=== PATIENT | female | born 1985 | race Caucasian/White ===

== ENCOUNTER 2017-05-17 10:48 | Observation (INO) ==
[2017-05-17 11:27] VITALS: BMI 52.6
[2017-05-17] MEDS ORDERED: SALINE FLUSH 10ml SYRINGE ONE (11:53)
[2017-05-17] MEDS ORDERED: IOHEXOL 350mg/ml 75ml INJECTION ONE (11:53)
[2017-05-17] MEDS ORDERED: NS 100 ML ONE (11:53)
[2017-05-17] MEDS: CALCIUM CARBONATE Chewable 500mg TABLET PO PRN ×2 (11:58→11:59)
--- NOTE | 2017-05-17 12:56 | CT Scan Report ---
Indication: Chest pain/PENNY, hx of PE PROCEDURE: CT angio pulm emboli: Encounter: Initial Comparison: Two chest, 11/29/2016 Technique: Axial, coronal, and sagittal images of the chest were acquired utilizing 75 cc of Omnipaque 350. Additionally, coronal and sagittal MIPS images were acquired. Radiation dose reduction techniques were utilized. Informed consent was signed by the patient as she is at 26 weeks gestation. Findings: The study is suboptimal with there opacification of the central pulmonary arteries including the interlobar pulmonary arteries with basal segmental and subsegmental artery opacification which is relatively; however, within limits the study, definite pulmonary embolism is not identified. Lung window review demonstrates no active pulmonary parenchymal process, nodule, or mass. There is no mediastinal or hilar adenopathy. The heart and pericardium appear normal. Normal thymic tissue is seen. Few images through the upper abdomen demonstrates no significant abnormality. Visualized osseous elements are intact. Impression: 1. Suboptimal study. Large pulmonary embolism is not seen. Mid to distal segmental and subsegmental pulmonary emboli are not excluded. 2. No active parenchymal process. .
[2017-05-17 14:00] VITALS: BP 130/67; PULSE 84; RESP 20; TEMP 98; O2SAT 100
--- NOTE | 2017-05-17 17:26 | Labor and Delivery Triage Note ---
L&D Triage/Final Diagnosis - Visit Information Date of evaluation: 05/17/17 Reason for evaluation OB Triage: other Comments/Additional reasons for admission: Chest pain with personal history of DVT/PE Expected Date of Delivery: 08/28/17 : 2 Para: 1 - Evaluation Laboratory results: Laboratory Results - last 24 hr 05/17/17 11:29 BUN 8.0 Creatinine 0.6 L GFR Calculation 117 Vital signs: Last Vital Signs Temp 98.0 F 05/17/17 13:45 Pulse 84 05/17/17 13:45 Resp 20 05/17/17 13:45 BP 130/67 05/17/17 13:45 Pulse Ox 100 05/17/17 13:45 Comments: CTA negative for PE. - Final Diagnosis (1) History of pulmonary embolism Status: Acute Problem details: New onset chest pain last 2 days. Negative CTA. Dismissal to home. (2) Previous delivery affecting , antepartum Status: Acute
== END 2017-05-17 14:14 | disposition home or self-care (01) ==
LOC: MC
PROVIDERS: ADMIT Obstetrics & Gynecology; ATTEND Obstetrics & Gynecology

== ENCOUNTER 2017-08-11 09:15 | Inpatient (IN) ==
[2017-08-11] MEDS ORDERED: FAMOTIDINE PB 20 MG/50 ML BAG IV ONE (09:24)
[2017-08-11] MEDS ORDERED: CITRIC ACID/SODIUM CITRATE 30ml PO ONE (09:24)
[2017-08-11] MEDS ORDERED: CEFAZOLIN PREMIX (MC ONLY) 2 GM/50 ML BAG IV ONE (09:27)
[2017-08-11] MEDS ORDERED: NOZIN NASAL SWAB NAS ONE ×2 (09:27)
[2017-08-11] MEDS ORDERED: CEFAZOLIN 1 G INJECTION IVP ONE (09:27)
[2017-08-11] MEDS ORDERED: TRANEXAMIC ACID 1,000 MG in NS 100 ML IV ONE (09:31)
[2017-08-11] MEDS ORDERED: LR 1,000 ML IV SCH (10:00)
--- OUTSIDE RECORDS SUMMARY | 2017-08-11 10:13 | External Medical Summary | Continuity of Care Document ---
:1985 Author Organization [facility] Address [address] [place], [place] [id number] Phone Care Team Providers Name Role Phone Jose Srivastava MD Unavailable Unavailable Allergies, Adverse Reactions, Alerts Substance Reaction Severity Status No Known Drug Allergies Unknown Active Medications Medication Instructions Dosage Effective Dates Status Comments (start - stop) Keflex 500 mg capsule take 1 capsule by oral 500 MG - Active route every 6 hours Rhophylac 1,500 unit - Active (300 mcg)/2 mL injection syringe promethazine 25 mg take 1 tablet by oral 25 MG - Active tablet route every day at bedtime ondansetron HCl 4 mg take 1 tablet by ORAL 4 MG - Active tablet route every 6 hours as needed for nausea heparin (porcine) inject 5000 units - Active 5,000 unit/mL subcutaneous every 12 injection syringe hours 28 mg-800 mcg - Active tablet Problems Condition Effective Dates (start - stop) Clinical Status Supervision of other high risk - pregnancies, third trimester Known Or Suspected HOME HEALTH CLINICAL LIAISON - Malformation, Hinson Or Unspecified Gestation Polyhydramnios, third trimester, not - applicable or unsp Personal history of pulmonary embolism - Previous Low Transverse - Obesity complicating , first - trimester 12 weeks gestation of - Personal history of pulmonary embolism - Supervision of other high risk - pregnancies, second trimester 15 weeks gestation of - Supervision of other high risk - pregnancies, third trimester Maternal care for excess growth, - third trimester, unsp Polyhydramnios, third trimester, not - applicable or unsp Unspecified abnormal findings in urine - Supervision of other high risk - pregnancies, third trimester Unsp infct of urinary tract in - , third trimester 30 weeks gestation of - Morbid (severe) obesity due to excess - calories Supervision of other high risk - pregnancies, first trimester Threatened - Encntr screen for infections w sexl - mode of transmiss Encounter for screening for oth - infec/parastc diseases Encounter for screening of - mother Personal history of pulmonary embolism - Morbid (severe) obesity due to excess - calories Supervision of other high risk - pregnancies, second trimester 14 weeks gestation of - Personal history of pulmonary embolism - Morbid (severe) obesity due to excess - calories Supervision of other high risk - pregnancies, second trimester Previous Low Transverse - Personal history of pulmonary embolism - Supervision of other high risk - pregnancies, second trimester Previous Low Transverse - Obesity complicating , second - trimester Personal history of pulmonary embolism - Supervision of other high risk - pregnancies, second trimester Known Or Suspected HOME HEALTH CLINICAL LIAISON - Malformation, Hinson Or Unspecified Gestation 27 weeks gestation of - Supervision of other high risk - pregnancies, second trimester 26 weeks gestation of - Personal history of pulmonary embolism - Supervision of other high risk - pregnancies, second trimester Previous Low Transverse - Known Or Suspected HOME HEALTH CLINICAL LIAISON - Malformation, Hinson Or Unspecified Gestation Personal history of pulmonary embolism - Supervision of other high risk - pregnancies, second trimester 25 weeks gestation of - Personal history of pulmonary embolism - Supervision of other high risk - pregnancies, third trimester Known Or Suspected HOME HEALTH CLINICAL LIAISON - Malformation, Hinson Or Unspecified Gestation Maternal care for excess growth, - third trimester, unsp Personal history of pulmonary embolism - Supervision of other high risk - pregnancies, third trimester 30 weeks gestation of - Personal history of pulmonary embolism - Supervision of other high risk - pregnancies, third trimester Known Or Suspected HOME HEALTH CLINICAL LIAISON - Malformation, Hinson Or Unspecified Gestation Polyhydramnios, third trimester, not - applicable or unsp Personal history of pulmonary embolism - Supervision of other high risk - pregnancies, third trimester Maternal care for excess growth, - third trimester, unsp Polyhydramnios, third trimester, not - applicable or unsp 32 weeks gestation of - Supervision of other high risk pregnancies, third trimester Polyhydramnios, third trimester, not - applicable or unsp 31 weeks gestation of - Personal history of pulmonary embolism - Supervision of other high risk - pregnancies, third trimester Previous Low Transverse - 28 weeks gestation of - Personal history of pulmonary embolism - Supervision of other high risk - pregnancies, third trimester Previous Low Transverse - Abnormal glucose complicating - Personal history of pulmonary embolism - Supervision of other high risk - pregnancies, third trimester Known Or Suspected HOME HEALTH CLINICAL LIAISON - Malformation, Hinson Or Unspecified Gestation 28 weeks gestation of - Threatened - 22 weeks gestation of - Personal history of pulmonary embolism - Threatened - 10 weeks gestation of - Abnormal glucose complicating - Depression Active Procedures Procedure Date Immuniz admnin, 1 vac, sngl/combo 19 Yrs + Flu Vaccine - Quadrivalent OB Visit No Charge Results Test Name Date and Time Measure Units Reference Range Abnormal Flag Comments Unknown Advance Directives Directive Yes / No Effective Date File Name Unknown Encounters Encounter Practice Location Reason(s) Diagnoses Date Provider Care Team Description For Visit Members [facility] Supervision of Mini Referring In Womens other high risk 9-201 Sully. Provider: Odalys GRIFFIN, pregnancies, 7 [address] Medical Alec, [address], [facility], Suspected Dr, [facility] Dr [place], HOME HEALTH CLINICAL LIAISON Malformation, 120, Darryl 120, [id number], [place], [place], [place], tel:+ GestationPolyhydr [phone]. amnios, third , [place]. tel:+ trimester, not tel: [phone] applicable or [phone] unspPersonal history of pulmonary embolism [facility] Supervision of Mini Referring In Womens other high risk 2-201 Sully. Provider: Odalys GRIFFIN, pregnancies, 7 [address] third Medical Alec, 700 1522, [facility], [facility] Dr [place], HOME HEALTH CLINICAL LIAISON Malformation, 120, Darryl 120, [id number], [place], [place], tel:+ GestationPolyhydr [phone]. [id number] amnios, third , [place]. tel:+ trimester, not tel: [phone] applicable or [phone] unspPersonal history of pulmonary embolism [facility] Supervision of Mini Referring In Womens other high risk 5-201 Sully. Provider: Odalys GRIFFIN, pregnancies, 7 [address] third Medical Alec, 700 1522, [facility] excess Dr, [facility] Dr [place], growth, 120, Darryl 120, [id number], third trimester, Oliver [place], [place] unspPolyhydramnio DEBRA RICHAR[place], tel: s, third [phone]. trimester, not , [place]. tel: applicable or tel:4153 unsp32 weeks [phone] gestation of [facility] Supervision of Sep-1 Mini Referring In Womens other high risk 9-201 Sully. Provider: Health PA, pregnancies, 7 [address] third Medical Alec, 700 1522, [facility]Known [facility] Dr, [facility] Dr [place], HOME HEALTH CLINICAL LIAISON Malformation, 120, Darryl 120, , Hinson Or Oliver [place], [place] Unspecified [place]BRA RICHAR[place], tel: GestationMaternal [phone]. care for excess , [place]. tel: growth, tel:53 third trimester, [phone] unspPersonal history of pulmonary embolism [facility] Supervision of Sep-1 Sobbing Referring In Womens other high risk 8-201 Bon. Provider: Health PA, pregnancies, 7 [address] third Medical Alec, 700 1522, trimesterPolyhydr [facility], amnios, third Drive, [place] Dr [place], trimester, not [address] Darryl 120, , applicable or 120, [place], [place] unsp31 weeks DEBRA Boyd, tel: gestation of DEBRA, [phone]. pregnancyPersonal [id number], tel: history of [place]. [phone] pulmonary tel: embolism [phone] [facility] Supervision of Sep-1 Mini Referring In Womens other high risk 1-201 Sully. Provider: Health PA, pregnancies, 7 [address] third Medical Alec, 700 1522, trimesterUnsp [facility], infct of urinary Dr, [facility] Dr [place]AR[place], tract in 120, Darryl 120, [id number], , third Oliver [place], [id number] weeks DEBRA R[place]AR[place], tel: gestation of [phone]. , [place]. tel: tel: [phone] Chantelle Boyd Supervision of Sep-0 Mini Referring In Womens other high risk 7-201 Sully. Provider: Health PA, pregnancies, 7 [address] third Medical Alec, 700 1522, trimesterPrevious [facility], Low Transverse Dr, [facility] Dr [place], C-SectionAbnormal 120, Darryl 120, [id number], glucose Oliver [place], [place] complicating DEBRA R[place]AR[place], tel: pregnancyPersonal [phone]. history of , [place]. tel: pulmonary tel: [phone] embolism [phone] [facility] Supervision of Sep-0 Mini Referring In Womens other high risk 5-201 Sully. Provider: Health ELIAS, pregnancies, 7 [address] third [id number] Medical Alec, 700 1522, weeks gestation [facility], of , [facility] Dr [place], pregnancyPersonal 120, Darryl 120, , history of Oliver [place], [place] pulmonary DEBRA R[place], tel: embolism [phone]. , [place]. tel: tel: [phone] Chantelle Boyd Supervision of May- Mini Referring In Womens other high risk 8-201 Sully. Provider: Odalys GRIFFIN, pregnancies, 7 [address] third Medical Alec, 700 1522, [facility]Maternal [facility], [facility] for excess Dr, [facility] Dr [place], growth, 120, Darryl 120, [id number], third trimester, Oliver [place], [place] unspPolyhydramnio DEBRA RICHAR[place], tel: s, third [phone]. trimester, not , [place]. tel: applicable or tel: [phone] unspUnspecified [id number] abnormal findings in urine [facility] Supervision of May-2 Mini Referring In Womens Ultrasound other high risk 8-201 Sully. Provider: Health ELIAS, pregnancies, 7 [address] third Medical Alec, 700 1522, trimesterKnown Or [facility], Suspected , [facility] Dr [place], HOME HEALTH CLINICAL LIAISON Malformation, 120, Darryl 120, [id number], [place] Or [place], [place], tel: [id number] weeks [phone]. gestation of , [place]. tel: tel: [phone] Chantelle Boyd Supervision of Mini Referring In Womens other high risk 3-201 Sully. Provider: Health PA, pregnancies, 7 [address] third Medical Alec, 700 1522, trimesterPrevious [facility] [place], Low Transverse Dr, [facility] Dr R[place], C-Nakrxyr12 weeks 120, Darryl 120, [id number], gestation of Oliver [place], [place] pregnancyPersonal [place], [place], tel: history of [phone]. pulmonary , [place]. tel: embolism tel: [phone] Chantelle Boyd Supervision of Mini Referring In Womens other high risk 7-201 Sully. Provider: Health PA, pregnancies, 7 [address] second Medical Alec, 700 1522, trimesterPrevious [facility], Low Transverse Dr, [facility] Dr R[place], C-SectionKnown Or 120, Darryl 120, [id number], Suspected Oliver [place], [place] HOME HEALTH CLINICAL LIAISON Malformation, [place], [place], tel: [place] Or [phone]. Unspecified , [place]. tel: GestationPersonal tel: [phone] history of [id number] pulmonary embolism [facility] Supervision of Mini Referring In Womens Ultrasound other high risk 7-201 Sully. Provider: Health PA, pregnancies, 7 [address] second Medical Alec, 700 1522, trimesterKnown Or Center Emily Rosa, Suspected Dr, [facility] Dr [place], HOME HEALTH CLINICAL LIAISON Malformation, 120, Darryl 120, [id number], [place]inson Or Oliver [place], [place], [place], tel: [id number] weeks [phone]. gestation of , [place]. tel: tel: [phone] Chantelle Boyd Supervision of Paras-3 Mini Referring In Womens other high risk 1-201 Sully. Provider: Health PA, pregnancies, 7 [address] second Medical Alec, 700 1522, [id number] [address] [facility], gestation of , [facility] Dr [place], pregnancyPersonal 120, Darryl 120, [id number], history of Oliver [place], [place] pulmonary DEBRA, DEBRA, tel: embolism [phone]. , [place]. tel: tel: [phone] Chantelle Boyd Abnormal glucose Apr-2 Mini Referring In Womens complicating 8-201 Sully. Provider: Health PA, 7 [address] Sully [address] Medical Mini L, 1522, Center Sofi Rosa, , [facility] [place], 120, [place] , [place], Darryl 120, [place] Oliver [place], tel: [phone] [place], , [place]. [id number]. tel: tel: [phone] Chantelle Boyd Supervision of Apr-2 Mini Referring In Womens other high risk 4-201 Sully. Provider: Health PA, pregnancies, 7 [address] second Medical Alec, 700 1522, [id number] weeks [place] Emily Rosa, gestation of Dr, [facility] Dr [place], pregnancyPersonal 120, Darryl 120, , history of Oliver [place], [place] pulmonary DEBRA, DEBRA, tel: embolism [phone]. , [place]. tel: tel: [phone] Chantelle Boyd Threatened Mar-2 Mini Referring In Womens [id number] weeks 9-201 Sully. Provider: Health PA, gestation of 7 [address] PO Box pregnancyPersonal Medical Alec, 700 1522, history of [place] Emily Rosa, pulmonary , [facility] Dr [place], embolism 120, Darryl 120, , Oliver [place], [place] DEBRA, DEBRA, tel: [phone]. , [place]. tel: tel: [phone] Chantelle Boyd Supervision of Mar-1 Mini Referring In Womens other high risk 2-201 Sully. Provider: Health ELIAS, pregnancies, 7 700 [address] Box second Medical Alec, 700 1522, trimesterPrevious [facility], Low Transverse Dr, [facility] Dr [place], C-SectionObesity 120, Darryl 120, , complicating Oliver [place], , second [place], tel: trimesterPersonal [phone]. history of , [place]. tel: pulmonary tel: [phone] embolism [phone] [facility] Morbid (severe) Arnold-0 Mini Referring In Womens obesity due to 1-201 Sully. Provider: Health ELIAS, excess 7 [address] PO Box caloriesSupervisi Medical Alec, 700 1522, on [facility], risk pregnancies, Dr, [facility] Dr [place], second 120, Darryl 120, , trimesterPrevious Oliver [place], Low Transverse DEBRA RICHAR[place], tel: C-SectionPersonal [phone]. history of , [place]. tel: pulmonary tel: [phone] embolism [phone] [facility] Supervision of May-1 Mini Referring In Womens other high risk 0-201 Sully. Provider: Odalys GRIFFIN, pregnancies, 7 [address] second Medical Alec, 700 1522, [id number] [facility], gestation of , [facility] Dr [place], 120, Darryl 120, , Oliver [place], [place], [place], tel: [phone]. , [place]. tel: tel: [phone] [facility] May-0 Mini In Womens 4-201 Sully. Health ELIAS, 7 700 [address] Medical [address], [place], , [facility] [place], 120, [id number], [place] DEB[place], tel: [phone] , [place]. tel: [phone] [facility] Morbid (severe) May-0 Mini Referring In Womens obesity due to 3-201 Sluly. Provider: Odalys GRIFFIN, excess 7 700 [address] PO Box caloriesSupervisi Medical Alec, 700 1522, on of other high [facility] [place], risk pregnancies, , [facility] Dr [place], second 120, Darryl 120, [id number], [id number] weeks Oliver [place], gestation of [place], [place], tel: pregnancyPersonal [phone]. history of , [place]. tel: pulmonary tel: [phone] embolism [phone] [facility] Previous Low Apr-2 Mini Referring In Womens Transverse 5-201 Sully. Provider: Odalys GRIFFIN, C-SectionObesity 7 [address] Box complicating Medical Alec, 700 1522, , first [facility], [id number] weeks , [facility] Dr R[place]AR[place], gestation of 120, Darryl 120, , pregnancyPersonal Oliver [place], history of [place], [place], tel: pulmonary [phone]. embolism , [place]. tel: tel: [phone] [facility] Apr-1 Mini In Womens 2-201 Sully. Odalys GRIFFIN, 7 700 [address] Medical [address], [place] [address] [place], [facility] [place]RA, 120, [id number], [place], DEBRA, tel: [phone] , [place]. tel: [phone] Chantelle Boyd Threatened Apr-1 Mini Referring In Womens Ultrasound [id number] weeks 0-201 Sully. Provider: Odalys GRIFFIN, gestation of 7 700 [address] PO Box Medical Alec, 700 1522, [facility] Dr [place], [facility] Dr [place], 120, Darryl 120, [id number], Oliver [place], DEBRA, DEBRA, tel: [phone]. , [place]. tel: tel: [phone] Chantelle Boyd Morbid (severe) Apr-1 Mini Referring In Womens obesity due to 0-201 Sully. Provider: Odalys GRIFFIN, excess 7 700 [address] PO Box caloriesSupervisi Medical Alec, 700 1522, on of other [facility] [place], risk pregnancies, , Dar[place] [facility] Dr R[place], first 120, Darryl 120, [id number], trimesterThreaten Oliver [place], ed abortionEncntr DEBRA, DEBRA, tel:2 screen for [phone]. [id number] infections w sexl , [place]. tel: mode of tel: [phone] transmissEncounte [id number] r for screening for oth infec/parastc diseasesEncounter for screening of motherPersonal history of pulmonary embolism Family History Family Member Diagnosis Age At Onset Mother Hypertension Father Diabetes No family history of Pulmonary Embolism Mother Thyroid Disorder No family history of Venous Thrombosis Mother Diabetes Father Hypertension Immunizations Vaccine Date Status Comments Influenza, injectable, completed Source: New Immunization Record quadrivalent, preservative free, 3 yrs or older Tdap completed Source: New Immunization Record Rhophylac completed Source: New Immunization Record Payers Payer name Insurance type Covered libertarian ID Authorization(s) [employer] [place] Medicaid MC [id number] [facility] [id number] [employer] [place] [id number] [facility] [id number] Social History Type Description Quantity Date Captured Alcohol Use Details No Caffeine Use Details Unknown Tobacco Use Status Unknown Smoking Status Never smoker Vital Signs Date / Height Weight BMI Pulse Blood Temperature Respiratory Body Head BMI Time: Rate Pressure Rate Surface Circumference percentile Area 348.60 59.8 132/73 -2017 lbs 3 mm[Hg] 10:40 kg/m AM eter (2) 348.60 59.8 lbs 3 10:24 kg/m AM eter (2) Chief Complaint And Reason For Visit Unknown Chief Complaint And Reason For Visit Reason For Referral Reason For Referral Unknown Plan Of Care Date Type Action Status Appointment Maylin Lin BOOKED Appointment Maylin Lin BOOKED Appointment Maylin Lin BOOKED Appointment Maylin Lin BOOKED Appointment Maylin Lin BOOKED Future Order: Radiology Order Ultrasound OB Follow-up ([id number]) Ordered Future Order: Radiology Order Ultrasound OB Follow-up ([id number]) Ordered Future Order: Radiology Order Biophysical Profile without NST Ordered ([id number]) Future Order: Radiology Order Ultrasound OB, Transvaginal ([id number] ) Ordered Future Order: Radiology Order Ultrasound OB, Transvaginal ([id number] ) Ordered Date Type Problem Goal Intervention Status Start Date Unknown. History Of Present Illness Encounter Date Complaint History Of Present Illness This patient has no known history of present illness Functional Status Encounter Date Functional Assessment Cognitive Assessment Unknown Medications Administered Medication Instructions Dosage Effective Dates (start - stop) Status Comments Drug Treatment Unknown Instructions Date Instruction Additional Information HIV and other routine tests risk factors identified by history anticipated course of care nutrition and weight gain counseling, special diet toxoplasmosis precautions (cats / raw meat) sexual activity exercise indications for ultrasound influenza vaccine environmental / work hazards travel use of any medications (including supplements, vitamins, herbs, OTC drugs) domestic violence seat belt use childbirth classes / hospital facilities hospital registration genetic testing new ob handbook risks
[2017-08-11 10:22] VITALS: BMI 55.3
--- NOTE | 2017-08-11 10:31 | Anesthesia Preoperative Report ---
Anesthesia Preoperative Record - Date and Time Date: 08/11/17 Preoperative Diagnosis: repeat c section Proposed Procedure: C Section NPO Since Date: 08/10/17 NPO Since Time: 20:30 Allergies/Adverse Reactions: Allergies Allergy/AdvReac Type Severity Reaction Status Date / Time No Known Drug Allergies Allergy Unknown Verified 05/17/17 13:36 - Vital Signs Vital Signs: Temperature 98.1 F 08/11/17 09:39 Pulse Rate 89 08/11/17 09:39 Respiratory Rate 25 H 08/11/17 09:39 Blood Pressure 136/82 08/11/17 09:39 Pulse Oximetry 97 08/11/17 09:39 Height and Weight: Height 5 ft 7 in Weight 160.118 kg Body Mass Index 55.3 - Medications Inpatient Medications: Current Medications Lactated Ringer's (Lactated Ringers) 1,000 mls @ 0 mls/hr IV .Q0M [facility] PRN Reason: Per Protocol Last Admin: 08/11/17 09:55 Dose: 999 mls/hr Isopropyl Alcohol (Nozin Nasal Swab) 1 each LACY 0600,1400,2200 [facility] Home Medications: Home Medications Medication Instructions Recorded Confirmed Type Doxylamine/Pyridoxine HCl (B6) 1 each PO PRN PRN 05/17/17 05/17/17 History [Annalisa Cool 10-10 mg Tablet] Heparin [Heparin Sq] 5,000 units SQ BID 05/17/17 05/17/17 History Vitamin Tab [Marco 1 tab PO DAILY 05/17/17 05/17/17 History ] Is Patient on Beta Kamala?: No - Medical History Respiratory: Reports: Pulmonary Embolism (hx PE last ), Sleep Apnea ( cpap) Cardiovascular: DENIES: Abnormal EKG, Angina, Arrhythmia, Congestive Heart Failure, Coronary Artery Disease, Heart Murmur, Hypertension, Hypotension, High Cholesterol, Myocardial Infarction, Rheumatic Fever, Valvular Heart Disease, Other Gastrointestional: Reports: Gastroesophageal Reflux Disease, Morbid Obesity DENIES: Obstructive Bowel, Hepatitis, Cirrhosis, Nausea or Vomiting Present, Gastrointestinal Bleeding, Hiatal Hernia, Ulcer, Other Neuro/Musculoskeletal: Denies: HX.MS.OSAR, Back Problems, Cerebrovascular Accident, Depression, Headaches, Loss of Consciousness, Muscle Weakness, Neuromuscular Disorder, Paralysis, Paresthesia, Syncope, Seizures, Other Renal/Endocrine: Reports: Thyroid Disease DENIES: Diabetes Mellitus Type 1, Diabetes Mellitus Type 2, Renal Failure, Dialysis, Weight Loss, Weight Gain, Other Other History: DENIES: Anesthesia Reactions, Now, Blood Transfusions, Chemotherapy , Cancer, Hemophilia, Malignant Hyperthermia, Sickle Cell Disease, Other - Surgical History Reproductive Surgery/Treatment: Reports: Section Anesthesia Reactions: None Hx Family Anesthesia Reaction: No History of Motion Sickness: No - Social History Smoking Status: Never smoker Hx Chewing Tobacco Use: No Second Hand Exposure: No Substance Use Type: does not use Alcohol Intake Frequency: does not drink - Pertinent Findings Laboratory: CBC and BMP 08/11/17 10:04 08/11/17 10:04 BMP 08/11/17 10:04 Sodium 140 Potassium 4.2 Chloride 108 H Carbon Dioxide 20 L BUN 7.0 Creatinine 0.6 L Glucose 84 Calcium 9.5 Liver Function 08/11/17 Range/Units 10:04 Total Bilirubin 0.50 (0.20-1.30) MG/DL AST 31 (14-36) U/L ALT 58 H (9-52) U/L Alkaline Phosphatase 127 H (38-126) U/L Albumin 3.5 (3.5-5.0) G/DL - Physical Exam Respiratory Exam: Present: lungs clear, bilateral breath sounds equal Cardiovascular Exam: Present: regular rate and rhythm, no murmur - Airway Assessment Mallampati Score: III TMD: 3 Fingerbreadths Neck Extension: good Overall Assessment: may be difficult mask vent, may be difficult intubation - ASA ASA Score: 3 - Plan Anesthesia: Neuroaxial Regional/Trunk Block: Spinal - Discussion Discussion: Discussed risks/options/alternatives of anesthesia and questions answered. Patient consents. Nursing pain assessment noted. Present for Discussion: spouse Attestation Statement: Prior to the delivery of any anesthetic medication, I examined the patient, developed the plan, obtained the patient's consent and discussed the risk and benefits of the procedure with the patient/guardian. - Additional Information Seen by Anesthesia: Yes
[2017-08-11] MEDS ORDERED: FentaNYL 100 MCG/2 ML INJECTION ONE (11:04)
[2017-08-11] MEDS ORDERED: EPHEDRINE 50mg/ml INJECTION ONE (11:05)
[2017-08-11] MEDS ORDERED: ONDANSETRON 4 MG/2 ML INJECTION ONE (11:41)
[2017-08-11] MEDS: OXYTOCIN BOLUS BAG 30 UNIT/500 ML ML IV SCH ×2 (11:50→12:58)
[2017-08-11] MEDS ORDERED: METOCLOPRAMIDE 10mg/2ml INJECTION IVP PRN (12:34)
[2017-08-11] MEDS ORDERED: NALBUPHINE 10 MG/ML INJECTION IVP PRN (12:34)
[2017-08-11] MEDS ORDERED: ONDANSETRON 4 MG/2 ML INJECTION IVP PRN (12:34)
[2017-08-11] MEDS ORDERED: NALOXONE 2 MG/2 ML INJECTION PFS IVP PRN (12:34)
--- NOTE | 2017-08-11 12:52 | Anesthesia Postoperative Note ---
- Date and Time Date: 08/11/17 Time: 13:50 - Status Patient Participated in Evaluation: Patient Participated in Person Vital Signs: Temperature 98.1 F 08/11/17 09:39 Pulse Rate 89 08/11/17 09:39 Respiratory Rate 25 H 08/11/17 09:39 Blood Pressure 136/82 08/11/17 09:39 Pulse Oximetry 97 08/11/17 09:39 Respiratory Function: Airway Patent Cardiovascular Function: Regular Pulse EKG: Sinus Rhythm Mental Status: Alert and Oriented Pain Intensity: 0 Hydration: IV Infusing Complications During Recover: None Apparent - Follow-Up Instructions Instructions: Per Surgeon
[2017-08-11] MEDS ORDERED: SIMETHICONE 80 MG CHEWABLE TABLET PO PRN (13:02)
[2017-08-11] MEDS ORDERED: RHOPHYLAC - PHARMACY CONSULT MC ONE (13:02)
[2017-08-11] MEDS ORDERED: SALINE FLUSH 10ml SYRINGE IV PRN (13:02)
[2017-08-11] MEDS ORDERED: HYDROCORTISONE 2.5% CREAM 30gm RECTALLY PRN (13:02)
[2017-08-11] MEDS ORDERED: DiphenhydrAMINE 25 MG CAPSULE PO PRN (13:02)
[2017-08-11] MEDS ORDERED: ACETAMINOPHEN 500 MG TABLET PO PRN (13:02)
[2017-08-11] MEDS ORDERED: OXYTOCIN DRIP 30 UNIT/500 ML ML IV SCH (13:02)
[2017-08-11] MEDS ORDERED: HYDROMORPHONE PCA 30mg/30ml VIAL IV PRN ×2 (13:02→23:34)
[2017-08-11] MEDS ORDERED: CALCIUM CARBONATE Chewable 500mg TABLET PO PRN (13:02)
[2017-08-11] MEDS: D5LR 1,000 ML IV SCH ×2 (13:04→23:12)
[2017-08-11] MEDS: HEPARIN SUB-Q 5,000 UNITS/0.5 ML INJECTION SQ SCH ×2 (13:55→23:43)
[2017-08-11] MEDS ORDERED: NOZIN NASAL SWAB NAS SCH (14:00)
[2017-08-11] MEDS: SIMETHICONE 80 MG CHEWABLE TABLET PO SCH ×4 (14:49→23:12)
[2017-08-11] MEDS: IBUPROFEN 800 MG TABLET PO PRN (16:48)
[2017-08-11] MEDS: HYDROCODONE/APAP 5mg/325mg TABLET PO PRN (23:12)
[2017-08-12] MEDS: HEPARIN SUB-Q 5,000 UNITS/0.5 ML INJECTION SQ SCH ×2 (01:38→13:30)
[2017-08-12] MEDS: IBUPROFEN 800 MG TABLET PO PRN ×2 (08:06→19:37)
[2017-08-12] MEDS: DOCUSATE CALCIUM 240 MG CAPSULE PO SCH (08:06)
[2017-08-12] MEDS: HYDROCODONE/APAP 5mg/325mg TABLET PO PRN ×3 (08:06→19:37)
--- NOTE | 2017-08-12 08:12 | Pharmacy Consult ---
Pharmacy Consult-Rhophylac - Laboratory Information 08/11/17 08/11/17 08/11/17 10:04 15:23 15:52 Hgb /Adult Ratio 0.0000 Blood Type B Negative RhIG Candidate? Is a candidate Rh FACTOR CONSULT: Mother Blood Type = B negative Child Blood Type = B positive Hgb / Adult Ratio = 0.0000 Will give Rho D Immunglobulin 300mcg IV x 1 dose. Thank you for the Consult, Billy Mendoza, Pharmacist.
[2017-08-12] MEDS ORDERED: RHO(D) IMMUNE GLOBULIN 300 MCG/2 ML INJECTION IVP ONE (08:15)
--- NOTE | 2017-08-12 08:17 | OB/GYN Progress Note ---
OB-PP Progress Note - General POD:: POD1 - Subjective Date: 08/12/17 Lochia: Moderate Pain: controlled Voiding: meek still in place Nausea or Vomiting Present: No - Objective Vital Signs: Last Vital Signs Temp 98.0 F 08/12/17 05:00 Pulse 83 08/12/17 05:00 Resp 20 08/12/17 05:00 BP 131/66 08/12/17 05:00 Pulse Ox 99 08/12/17 05:00 Urine Output: good General: alert and oriented Respiratory: non-labored Abdomen: fundus firm (wound vac in place) Incision: dressed Extremities: non-tender (SCD's in place) Laboratory: Laboratory Results - last 24 hr 08/11/17 08/11/17 08/11/17 10:04 10:04 10:04 WBC 10.1 RBC 4.28 Hgb 13.0 Hct 37.9 MCV 88.6 MCH 30.4 MCHC 34.3 RDW Std Deviation 40.9 Plt Count 244 MPV 12.2 Immature Gran % (Auto) 0.1 Neut % (Auto) 72.9 H Lymph % (Auto) 18.8 L [place] % (Auto) 7.3 Eos % (Auto) 0.7 Baso % (Auto) 0.2 Neut # (Auto) 7.4 Lymph # (Auto) 1.9 [place] # (Auto) 0.7 Eos # (Auto) 0.1 Baso # (Auto) 0.0 Abs Immat Gran (auto) 0.01 Hgb /Adult Ratio Turbidity < 20 Sodium 140 Potassium 4.2 Chloride 108 H Carbon Dioxide 20 L Anion Gap 12 BUN 7.0 Creatinine 0.6 L GFR Calculation 117 BUN/Creatinine Ratio 12 Glucose 84 Calculated Osmolality 266 Calcium 9.5 Total Bilirubin 0.50 Conjugated Bilirubin 0.00 Unconjugated Bilirubin 0.30 Icterus Index < 2 AST 31 ALT 58 H Alkaline Phosphatase 127 H Total Protein 7.1 Albumin 3.5 Globulin 3.6 Albumin/Globulin Ratio 1.0 L Specimen Hemolysis < 15 Blood Type B Negative Antibody Screen Positive A* Antibody Identification Immune D RhIG Candidate? Crossmatch (AHG) See Detail 08/11/17 08/11/17 08/11/17 15:23 15:52 15:57 WBC 12.0 H RBC 4.11 Hgb 12.4 Hct 36.6 MCV 89.1 MCH 30.2 MCHC 33.9 RDW Std Deviation 41.8 Plt Count 235 MPV 11.9 Immature Gran % (Auto) Neut % (Auto) Lymph % (Auto) [place] % (Auto) Eos % (Auto) Baso % (Auto) Neut # (Auto) Lymph # (Auto) [place] # (Auto) Eos # (Auto) Baso # (Auto) Abs Immat Gran (auto) Hgb /Adult Ratio 0.0000 Turbidity Sodium Potassium Chloride Carbon Dioxide Anion Gap BUN Creatinine GFR Calculation BUN/Creatinine Ratio Glucose Calculated Osmolality Calcium Total Bilirubin Conjugated Bilirubin Unconjugated Bilirubin Icterus Index AST ALT Alkaline Phosphatase Total Protein Albumin Globulin Albumin/Globulin Ratio Specimen Hemolysis Blood Type Antibody Screen Antibody Identification RhIG Candidate? Is a candidate Crossmatch (AHG) - Assessment Assessment: Repeat C/S - Plan Plan: routine care (Baby in [facility])
--- NOTE | 2017-08-12 09:52 | Operative Note ---
DATE OF SURGERY 08/11/2017 PREOPERATIVE DIAGNOSIS 1. Term . Previous , declines . 2. Polyhydramnios. 3. Anticoagulation for personal history of pulmonary embolism. 4. Mild preeclampsia. 5. Large for gestational age. POSTOPERATIVE DIAGNOSES 1. Term . Previous , declines . 2. Polyhydramnios. 3. Anticoagulation for personal history of pulmonary embolism. 4. Mild preeclampsia. 5. Large for gestational age. 6. Delivered. PROCEDURE Repeat low transverse section. SURGEON Sully Morse MD SURGERY CONSULTANT Keon Oquendo, Reinforcing Steel Machine Operator ANESTHESIA Spinal DATA WAREHOUSING MANAGER Ferdinand Muñoz, SKEIN DYER EBL 700 mL DESCRIPTION OF PROCEDURE Ms. Lin was brought to the OR and given regional analgesia to good effect. She was then placed on the OR table in the comfortable supine position with left lateral displacement. A Garces catheter was placed to dependent drain. The abdomen was prepped and draped in the usual sterile fashion. We used the Traxi pannus retractor to help retract. I made a low midline incision. This was carried down to the fascia. Fascia was then incised vertically. Fascia was tented up and peritoneum entered sharply. This was then extended vertically. The bladder blade was inserted. The bladder was noted to be well below the area of operation. A low transverse uterine incision was made. There were excessive amounts of clear amniotic fluid. This took a moment to diminish. I attempted to elevate the head. I was able to lift it out of the pelvis but not above the patient's pannus. I therefore placed the Vector blade around the baby's head and was then able to deliver the baby in total. Baby was then bulb suctioned. Cord was doubly clamped and cut and baby was given to Dr. Silva and her team for care. This is a liveborn male. He had Apgars of 7/7/9. He weighed 8 pounds, 0.6 ounces. The placenta was then manually removed intact. It had a normal configuration and normal-appearing three-vessel cord. The uterus was exteriorized. We then swept the membranes clear of the uterine cavity. Myometrium was reapproximated with a running locking 0 Monocryl. We observed carefully for hemostasis. There was a small area along the incision near the left that was bleeding. This was secured with a [id number] suture of 2-0 chromic. Uterus, tubes and ovaries were noted to be grossly normal and we returned to the abdominal cavity. We then reinspected for hemostasis. This remained good throughout the remainder of the procedure. Peritoneum was then reapproximated with a running nonlocking 2-0 Vicryl. The fascia was reapproximated with a running nonlocking PDS. We irrigated copiously with sterile normal saline. Skin edges were reapproximated with wide kevin. We then applied the Prevena suction drape. The patient was then transferred to recovery in stable condition. SANTIAGO
[2017-08-12] MEDS: D5LR 1,000 ML IV SCH (10:21)
[2017-08-12] MEDS: SIMETHICONE 80 MG CHEWABLE TABLET PO SCH ×3 (13:21→19:37)
[2017-08-13] MEDS: SIMETHICONE 80 MG CHEWABLE TABLET PO SCH ×4 (01:31→22:50)
[2017-08-13] MEDS: HEPARIN SUB-Q 5,000 UNITS/0.5 ML INJECTION SQ SCH ×3 (01:35→20:47)
--- NOTE | 2017-08-13 08:47 | OB/GYN Progress Note ---
OB-Progress Note Free Text - Date Date: 08/13/17 - Progress Note Progress Note: vss af no lab this am baby still in scn ambulating ok on heparin bid wound vac on cont current care path q&a
[2017-08-13] MEDS: DOCUSATE CALCIUM 240 MG CAPSULE PO SCH (09:17)
[2017-08-13] MEDS: IBUPROFEN 800 MG TABLET PO PRN (09:17)
[2017-08-13] MEDS: HYDROCODONE/APAP 5mg/325mg TABLET PO PRN (20:42)
[2017-08-14 08:37] VITALS: O2SAT 97
[2017-08-14] MEDS: IBUPROFEN 800 MG TABLET PO PRN ×2 (10:02→18:32)
[2017-08-14] MEDS: SIMETHICONE 80 MG CHEWABLE TABLET PO SCH ×4 (10:03→18:32)
[2017-08-14] MEDS: DOCUSATE CALCIUM 240 MG CAPSULE PO SCH (10:03)
[2017-08-14] MEDS: HEPARIN SUB-Q 5,000 UNITS/0.5 ML INJECTION SQ SCH ×2 (10:32→18:28)
--- NOTE | 2017-08-14 13:02 | OB/GYN Progress Note ---
OB-Progress Note Free Text - Date Date: 08/14/17 - Progress Note Progress Note: doing ok baby still in scn incision looks ok but vacuum dressing still in place plan dc to boarding today has f/u appt w/ ANNETTEH this coming Wed already instructions, q&a-krb
--- NOTE | 2017-08-14 13:09 | Discharge Instructions ---
Discharge Plan - Med Rec/Dispo Referrals/Follow Up: Sully Morse MD [Physician] - (Wednesday) Prescriptions: New Hydrocodone/APAP 5/325 [[place] 5/325] 1 - 2 tab PO Q4H PRN #30 tab PRN Reason: Pain Ibuprofen [Motrin] 800 mg PO Q8H PRN #30 tab PRN Reason: Pain Continue Vitamin Tab [Marco ] 1 tab PO DAILY HEPARIN 5,000unit/ml 5,000 unit SQ BID - Disposition Discharged Home, Self-Care
[2017-08-14 16:27] VITALS: BP 140/84; PULSE 87; RESP 18; TEMP 97.6
== END 2017-08-14 18:38 | disposition home or self-care (01) | DRG 765 ==
LOC: MC 09:15
PROVIDERS: ADMIT Obstetrics & Gynecology; ATTEND Obstetrics & Gynecology

== ENCOUNTER 2017-08-19 12:05 | Observation (INO) ==
[2017-08-19 12:25] VITALS: BMI 51.5
[2017-08-19 12:43] VITALS: RESP 16
--- NOTE | 2017-08-19 12:44 | OB/GYN Progress Note ---
[facility] Postop Prog Note Free Text - Date Date: 08/19/17 - Progress Note 31 yo s/p repeat LTCS 08/13/17 at 37 weeks EGA admitted for wound dehiscence yesterday pm. Hx of PE after first delivery. Serosanguinous fluid, no erythema, no exudate. AVSS Cont activity, sq heparin, DVT prophyllaxis. Consult [facility] for outpatient management. I am reluctant to attempt secondary closure as she is at increased risk for wound infection. Pt voices understanding. Q&A
[2017-08-19] MEDS ORDERED: HEPARIN SUB-Q 5,000 UNITS/0.5 ML INJECTION SQ SCH (12:45)
[2017-08-19] MEDS ORDERED: IBUPROFEN 800 MG TABLET PO PRN (13:55)
[2017-08-19] MEDS ORDERED: HYDROCODONE/APAP 5mg/325mg TABLET PO PRN (13:56)
[2017-08-19 16:12] VITALS: BP 121/74; PULSE 73; TEMP 96.7; O2SAT 99
--- NOTE | 2017-08-20 07:26 | Wound Care Progress Note ---
Wound Center Progress Note: 08/19/17 Dr Morse called the wound clinic and asked us to evaluate pt for wound care. At this time pt has not had 30 days of conventional treatment for a full thickness dehisced incision. Pt was taught using clean technique how to pack wound with moistened gauze and cover with ABD and secure with tape. We will contact Insurance and discuss their options for wound vac placement. Pt will make an appointment to see wound clinic.
== END 2017-08-19 18:32 | disposition home or self-care (01) ==
LOC: SRG
PROVIDERS: ADMIT Obstetrics & Gynecology; ATTEND Obstetrics & Gynecology